=== PATIENT | female | born 1970 | race Caucasian/White ===

== ENCOUNTER → 2021-12-16 14:29 | Outpatient (CLI) | payer OTHER, SELFPAY ==
--- NOTE | ~2021-12-16 | MM_ITS ---
EXAMINATION: MM screening jurgen BI w gt HISTORY: Screening mammogram TECHNIQUE: Craniocaudal and mediolateral oblique 3-D tomosynthesis images were obtained and synthetic 2-D images were generated. CAD analysis was submitted and interpreted. COMPARISON: No prior mammogram is available for comparison at this institution. BREAST PARENCHYMAL COMPOSITION: The breasts are heterogeneously dense, which may obscure small masses . FINDINGS: There is no evidence of suspicious mass, calcification, or architectural distortion to sugg est malignancy in either breast. There has been no suspicious interval change. IMPRESSION: 1. No mammographic evidence of malignancy. 2. Recommend routine screening mammography in one year. BI-RADS Category 1: Negative Reviewed, dictated and finalized at location A. S NOTES DEVELOPER
--- NOTE | ~2021-12-16 | DEXA_ITS ---
Bone Density Report Name: MILLIE MUNOZ Age: 51 Sex: Female Ethnicity: White Date of : 1970 Indication: screening for osteoporosis; height loss; Referring Provider: NICKIE*, HARVEY Julian Study: Bone densitometry was performed. Exam Date: December 16, 2021 Accession number: [id number] Bone Density: Region BMD T-score Z-score Classification AP Spine (L1-L4) 0.920 -1.2 -0.2 Osteopenia Femoral Neck (Left) 0.632 -2.0 -1.0 Osteopenia Total Hip (Left) 0.806 -1.1 -0.5 Osteopenia Femoral Neck (Right) 0.638 -1.9 -1.0 Osteopenia Total Hip (Right) 0.810 -1.1 -0.5 Osteopenia Total Hip Mean 0.808 -1.1 -0.5 Osteopenia World Health Organization criteria for BMD impression classify patients as: Normal (T-score at or above -1.0), Osteopenia (T-score between -1.0 and -2.5), or Osteoporosis (T-score at or below -2.5). 10-year Fracture Risk: FRAX not reported because: Premenopausal woman Clinical Information Provided by Patient: Has used the following medications: Vitamin D, MTV Patient maximum height was 62.5 No regular weight bearing exercise Does not regularly consume dairy products Drinks caffeinated beverages Onset of menses at age 12 Premenopausal Number of children 2 Impression: The patient's bone mass is within expected range for age, gender and ethnicity. Discussion: BONE DENSITY IS WITHIN EXPECTED LIMITS FOR AGE, SEX AND RACE. Bone density is within expected limits for age, sex and race at all sites measured. The patient should follow a healthful lifestyle (good nutrition with adequate calcium and vitamin D, and appropriate weight-bearing exercise). Follow-Up: Consider repeating this study in 2 to 3 years to reassess this patient's status, or sooner if there is some new clinical indication. Reported by: ALBA on 12/16/2021 3:36:00 PM. Reviewed, dictated and finalized at location [facility] ANDREA
== END ==
PROVIDERS: PCP Internal Medicine; Visit Provider Internal Medicine
DX: Z12.31 Encounter for screening mammogram for malignant neoplasm of breast (principal); M81.0 Age-related osteoporosis without current pathological fracture; M85.89 Other specified disorders of bone density and structure, multiple sites
CPT/HCPCS: 77063; 77067; 77080

== ENCOUNTER 2023-12-27 13:38 | Outpatient (CLI) | payer OTHER, SELFPAY ==
--- NOTE | ~2023-12-27 | XR_ITS ---
CHEST RADIOGRAPH, PA AND LATERAL CLINICAL HISTORY: COUGH . COMPARISON: 11/29/2007 TECHNIQUE: PA and lateral views of the chest. FINDINGS The cardiomediastinal silhouette is unremarkable. The lungs are clear. Visualized osseous structures and soft tissues are unremarkable. IMPRESSION: No focal infiltrate or effusion. Reviewed, dictated and finalized at location A. TAPER HELPER
== END 2023-12-27 13:39 | disposition home or self-care (01) ==
PROVIDERS: PCP Internal Medicine; Visit Provider Internal Medicine
DX: R05.9 Cough, unspecified (principal)
CPT/HCPCS: 71046

== ENCOUNTER 2024-10-31 07:45 | Outpatient (CLI) | payer OTHER, SELFPAY ==
--- NOTE | ~2024-10-31 | DEXA_ITS ---
Bone Density Report Name: MILLIE MUNOZ Age: 54 Sex: Female Ethnicity: White Date of : 1970 Indication: osteopenia; Referring Provider: NICKIE*, HARVEY Julian Study: Bone densitometry was performed. Exam Date: October 31, 2024 Accession number: [id number] Bone Density: Region BMD T-score Z-score Classification AP Spine(L1-L4) 0.936 -1.0 0.1 Normal Femoral Neck (Left) 0.577 -2.5 -1.4 Osteoporosis Total Hip (Left) 0.781 -1.3 -0.6 Osteopenia Femoral Neck (Right) 0.590 -2.3 -1.2 Osteopenia Total Hip (Right) 0.792 -1.2 -0.5 Osteopenia Total Hip Mean 0.787 -1.3 -0.6 Osteopenia World Health Organization criteria for BMD impression classify patients as: Normal (T-score at or above -1.0), Osteopenia (T-score between -1.0 and -2.5), or Osteoporosis (T-score at or below -2.5). 10-year Fracture Risk: FRAX not reported because: Premenopausal woman Some T-score for Spine Total or Hip Total or Femoral Neck at or below -2.5 Previous Exams: -- Region Exam Age BMD T-score BMD Change BMD Change Date g/cm2 vs Baseline vs Previous -- AP Spine (L1-L4) 10/31/2024 54 0.936 -1.0 1.7% 1.7% 12/16/2021 51 0.920 -1.2 Total Hip(Left) 10/31/2024 54 0.781 -1.3 -3.2% -3.2% 12/16/2021 51 0.806 -1.1 Total Hip(Right) 10/31/2024 54 0.792 -1.2 -2.2% -2.2% 12/16/2021 51 0.810 -1.1 -- *Denotes significance at 95% confidence level, LSC for AP Spine = 0.022 g/cm2, LSC for Total Hip = 0.027 g/cm2 Clinical Information Provided by Patient: Has used the following medications: Vitamin D, Calcium Patient maximum height was 62 No regular weight bearing exercise Does not regularly consume dairy products Drinks caffeinated beverages Onset of menses at age 12 Premenopausal Number of children 2 Impression: The patient's bone mass is within expected range for age, gender and ethnicity. No significant bone loss was observed. Discussion: BONE DENSITY IS WITHIN EXPECTED LIMITS FOR AGE, SEX AND RACE. Bone density is within expected limits for age, sex and race at all sites measured. The patient should follow a healthful lifestyle (good nutrition with adequate calcium and vitamin D, and appropriate weight-bearing exercise). Follow-Up: Consider a repeat BMD and Vertebral Fracture Assessment (VFA) exam in 2 years or sooner if medically necessary, to reassess this patient's status. Reported by: MARTINA on 10/31/2024 8:07:00 AM. Reviewed, dictated and finalized at location A.
== END 2024-10-31 07:46 | disposition home or self-care (01) ==
PROVIDERS: PCP Internal Medicine; Visit Provider Internal Medicine
DX: M81.0 Age-related osteoporosis without current pathological fracture (principal); M85.89 Other specified disorders of bone density and structure, multiple sites
CPT/HCPCS: 77080